=== PATIENT | male | born 1945 | race Caucasian/White ===

== ENCOUNTER 2016-11-23 13:02 | Emergency (ER) | payer OTHER ==
[~2016-11-23] VITALS: Ht 177.8 cm; Wt 116.3 kg
[~2016-11-23 13:02] MED LIST: ASPIR 8181 M1 PO; ATORVASTATIN CA10 MG PO; ERYTHROMYCIN O3.5 GM LEFT EYE; NEXIUM20 MG; TAMSULOSIN HCL0.4 MG PO; TENORMIN50 MG PO; VIOXX; ZITHROMAX Z-PA250 MG PO
[2016-11-23 15:15] LABS: HEMATOCRIT 48.3 % (38.0-50.0); MCH 30.1 PG (29.0-34.0); MCHC 33.7 G/DL (30.0-36.0); MCV 89.3 FL (86-99); MEAN PLAT.VOLUME 8.9 uM^3 (9.0-12.4); PLATELET COUNT 297 K/uL (156-360); RBC DIS.WIDTH-CV 13.1 % (11.8-14.6); RBC DIS.WIDTH-SD 42.5 % (39-53); RED BLOOD COUNT 5.41 M/uL (4.00-5.50); WHITE BLOOD COUNT 10.4 K/uL (4.1-10.2)
[2016-11-23 15:18] LABS: ADD MIUA? NO; BILIRUBIN NEGATIVE; BLOOD NEGATIVE; COLOR YELLOW ((YELLOW)); GLUCOSE (STRIP) NEGATIVE; KETONES NEGATIVE; LEUKOCYTES NEGATIVE; NITRITE NEGATIVE; PROTEIN (STRIP) NEGATIVE; SPECIFIC GRAVITY 1.014 (1.000-1.030); UROBILINOGEN 0.2 MG/DL (0.2-1.0)
[2016-11-23 15:24] LABS: CHLORIDE 102 mEq/L (99-109); POTASSIUM 3.8 mEq/L (3.7-5.4); SODIUM 141 mEq/L (136-147)
[2016-11-23 15:27] LABS: GLUCOSE 94 mg/dL (70-99)
[2016-11-23 15:28] LABS: ANION GAP 9 MEQ/L (2-14)
[2016-11-23 15:29] LABS: TOTAL BILIRUBIN 1.3 mg/dL (0.0-1.0)
[2016-11-23 15:30] LABS: ALKALINE PHOSPHATASE 68 IU/L (3-129)
[2016-11-23 15:31] LABS: GFR ESTIMATE (CALCULATED) > 59 mL/min/
[2016-11-23 15:32] LABS: DIRECT BILIRUBIN 0.4 mg/dL (0.0-0.3); UREA NITROGEN (BUN) 13 mg/dL (9-23)
[2016-11-23 15:34] LABS: CREATINE KINASE 188 IU/L (1-294)
[2016-11-23] MEDS ORDERED: MOTRIN800 MG PO (20:05)
[2016-11-23] MEDS ORDERED: FIORICET 50-301 EACH PO (20:05)
[2016-11-23] MEDS ORDERED: ANTIVERT25 MG PO (20:08)
[2016-11-23] MEDS ORDERED: VALIUM2 MG PO (20:08)
[2016-11-23 20:21] VITALS: BP 116/80
== END 2016-11-23 20:22 | disposition home or self-care (01) ==
LOC: EME 13:02
PROVIDERS: Physician Assistant
DX: R51 Headache (principal); M62.838 Other muscle spasm; J32.9 Chronic sinusitis, unspecified; R42 Dizziness and giddiness; I10 Essential (primary) hypertension; Z87.891 Personal history of nicotine dependence
CPT/HCPCS: 70450; 70498; 80048; 80076; 81003; 82550; 85027; 87651 90; 93005; 99281; 99285; J7030

== ENCOUNTER 2017-10-12 00:14 | Emergency (ER) | payer OTHER ==
[~2017-10-12] VITALS: Ht 177.8 cm; Wt 120.2 kg
[~2017-10-12 00:14] MED LIST changes: +ANTIVERT25 MG PO; +FIORICET 50-301 EACH PO; +MOTRIN800 MG PO; +VALIUM2 MG PO
[2017-10-12 01:46] LABS: HEMATOCRIT 42.6 % (38.0-50.0); MCH 30.7 PG (29.0-34.0); MCHC 35.2 G/DL (30.0-36.0); MCV 87.1 FL (86-99); PLATELET COUNT 300 K/uL (156-360); RBC DIS.WIDTH-CV 13.1 % (11.8-14.6); RBC DIS.WIDTH-SD 41.9 % (39-53); RED BLOOD COUNT 4.89 M/uL (4.00-5.50); WHITE BLOOD COUNT 9.7 K/uL (4.1-10.2)
[2017-10-12 01:56] LABS: CHLORIDE 104 mEq/L (99-109); POTASSIUM 3.3 mEq/L (3.7-5.4); SODIUM 139 mEq/L (136-147)
[2017-10-12 01:57] LABS: GLUCOSE 114 mg/dL (70-99)
[2017-10-12 02:01] LABS: CREATININE 1.2 mg/dL (0.6-1.3); GFR ESTIMATE (CALCULATED) > 59 mL/min/ (58.99-99999)
[2017-10-12 02:02] LABS: UREA NITROGEN (BUN) 21 mg/dL (9-23)
[2017-10-12 02:04] LABS: URIC ACID 9.3 mg/dL (3.1-9.2)
[2017-10-12] MEDS ORDERED: COLCHICINE0.6 M1 PO (02:19)
[2017-10-12] MEDS ORDERED: NORCO 5/3251 TABLET PO (02:19)
[2017-10-12 02:49] VITALS: BP 154/83
== END 2017-10-12 02:49 | disposition home or self-care (01) ==
LOC: EME 00:14
PROVIDERS: Physician Assistant
DX: M10.9 Gout, unspecified (principal); M77.31 Calcaneal spur, right foot; Z87.891 Personal history of nicotine dependence
CPT/HCPCS: 73630; 80048; 84550; 85027; 99281; 99283